=== PATIENT | male | born 2005 | race African-American/Black ===

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

== ENCOUNTER 2024-05-14 20:36 | Emergency (ER) | payer MEDICAID ==
[~2024-05-14] VITALS: Ht 182.9 cm; Wt 86.0 kg
[~2024-05-14 20:36] MED LIST: IBUP-1456 PO; METH-1181 PO
[2024-05-14] MEDS: SODIUM CHLORIDE 0.9% 1,000 ML IV ONE ×2 (20:45→23:00)
[2024-05-14 21:02] LABS: Basophils # (auto) 0 10 ^3/uL (0-0.2); Eosinophils # (auto) 0.1 10 ^3/uL (0-0.8); Lymphocytes # (auto) 2.1 10 ^3/uL (0.4-5.4); White Blood Cell 5.7 10^3/uL (4.4-10.8)
[2024-05-14 21:04] LABS: Basophils % (auto) 0.7 % (0.0-2.0); Eosinophils % (auto) 1.6 % (0.0-7.0); Hematocrit 43.8 % (41.0-53.0); Hemoglobin 14.5 g/dL (13.5-17.5); Lymphocytes % (auto) 36.6 % (10.0-50.0); Mean Corpuscular Hemoglobin 26.6 pg (28.0-32.0); Mean Corpuscular Volume 80.7 fL (80.0-100.0); Monocytes # (auto) 0.5 10 ^3/uL (0-1.3); Monocytes % (auto) 8.1 % (0.0-12.0); Nucleated Red Blood Cells % 0.1 %; Platelet Count (auto) 225 10^3/uL (140-450); Red Blood Cells 5.43 10^6/uL (4.5-5.90); Red Cell Distribution Width 16.2 % (11.8-14.3)
[2024-05-14 21:29] LABS: Chloride 108 mmol/L (98-107); Potassium 3.5 mmol/L (3.5-5.1); Sodium 139 mmol/L (136-145)
[2024-05-14 21:30] LABS: Anion Gap 5 (5-15); Calcium 9.4 mg/dL (8.7-10.4); Carbon Dioxide 26 mmol/L (20-30)
[2024-05-14 21:35] LABS: Glucose 107 mg/dL (74-106)
[2024-05-14 21:44] LABS: BUN/Creatinine Ratio 4.5 (10.0-20.0); Blood Urea Nitrogen < 5 mg/dL (9-23)
[2024-05-14] MEDS: NALOXONE HCL 1MG/ML 2ML SYRINGE IV ONE (23:00)
[2024-05-14 23:11] VITALS: BP 139/81; PULSE 100; RESP 26; O2SAT 97
== END 2024-05-15 01:26 | disposition left against medical advice (07) ==
LOC: ER 20:36 → EDBD 20:36 → ER 05-15 01:26
DX: G93.41 Metabolic encephalopathy (principal); F31.9 Bipolar disorder, unspecified; F15.90 Other stimulant use, unspecified, uncomplicated; Z79.899 Other long term (current) drug therapy
CPT/HCPCS: 36415; 70450; 80048; 80320; 85025; 93005; 96361; 96374; 99285; J2310; J7030